=== PATIENT | male | born 1980 | race Caucasian/White ===

== ENCOUNTER 2017-06-21 19:06 | Emergency (ER) | payer MEDICAID ==
[~2017-06-21] VITALS: Ht 177.8 cm; Wt 75.7 kg
[2017-06-21 21:21] VITALS: BP 128/76
[2017-06-21 21:39] LABS: Urine Bilirubin Negative (Negative); Urine Blood 1+ /uL (Negative); Urine Color Yellow (Yellow); Urine Glucose Normal (Normal); Urine Hyaline Cast FEW /lpf (0 - 2); Urine Ketone Negative (Negative); Urine Mucus FEW (None Seen); Urine Nitrite Negative (Negative); Urine RBC 6 /hpf (0 - 3); Urine Sperm PRESENT /hpf (None Seen); Urine Squamous Epithelial Cell FEW /hpf (<5); Urine Urobilinogen Normal (Negative); Urine pH 5.5 (5.0-8.0)
== END 2017-06-22 00:02 | disposition left against medical advice (07) ==
LOC: EDUNIT# 19:06 → ER 19:11
DX: R10.9 Unspecified abdominal pain (principal); R11.2 Nausea with vomiting, unspecified; R42 Dizziness and giddiness; Z53.21 Procedure and treatment not carried out due to patient leaving prior to being seen by health care provider
CPT/HCPCS: 36415; 70450; 74176; 80307; 81001; 93005

== ENCOUNTER 2020-07-19 22:55 | Emergency (ER) | payer OTHER, MEDICAID ==
[~2020-07-19] VITALS: Ht 175.3 cm; Wt 80.7 kg
[2020-07-19 23:10] VITALS: BP 140/107
== END 2020-07-20 03:46 | disposition left against medical advice (07) ==
LOC: ER 22:57
DX: S39.011A Strain of muscle, fascia and tendon of abdomen, initial encounter (principal); X58.XXXA Exposure to other specified factors, initial encounter; Y93.89 Activity, other specified; Y92.89 Other specified places as the place of occurrence of the external cause; Y99.8 Other external cause status
CPT/HCPCS: 74176; 99284; J7030

== ENCOUNTER 2023-09-05 22:02 | Emergency (ER) | payer BC, MEDICAID ==
[~2023-09-05] VITALS: Ht 175.3 cm; Wt 88.1 kg
[2023-09-05 22:24] VITALS: BP 135/94; PULSE 97; RESP 16; TEMP 98.9
[2023-09-06 00:13] VITALS: O2SAT 97
== END 2023-09-06 00:17 | disposition left against medical advice (07) ==
LOC: ER 22:02
DX: R22.1 Localized swelling, mass and lump, neck (principal); F41.9 Anxiety disorder, unspecified; F32.9 Major depressive disorder, single episode, unspecified; F15.90 Other stimulant use, unspecified, uncomplicated; Z88.1 Allergy status to other antibiotic agents

== ENCOUNTER 2024-04-03 04:32 | Emergency (ER) | payer BC, MEDICAID ==
[~2024-04-03] VITALS: Ht 175.3 cm; Wt 81.3 kg
[2024-04-03 04:50] VITALS: BP 134/95; PULSE 67; RESP 18; TEMP 98.1; O2SAT 100
[2024-04-03] MEDS ORDERED: METH4PAK PO (07:14)
[2024-04-03] MEDS ORDERED: CIPR0.3S67 OP (07:14)
[2024-04-03] MEDS: cefTRIAXone SOD 1,000 MG VL IM ONE (07:20)
[2024-04-03] MEDS: methylPREDNISolone SOD SUCC 125 MG/2 ML VL IM ONE (07:21)
== END 2024-04-03 07:47 | disposition home or self-care (01) ==
LOC: ER 04:32
DX: J03.80 Acute tonsillitis due to other specified organisms (principal); H10.31 Unspecified acute conjunctivitis, right eye; F12.90 Cannabis use, unspecified, uncomplicated; F15.90 Other stimulant use, unspecified, uncomplicated; Z88.1 Allergy status to other antibiotic agents; Z79.52 Long term (current) use of systemic steroids
CPT/HCPCS: 96372; 99284; J0696; J2919